=== PATIENT | male | born 1960 | race Caucasian/White ===

== ENCOUNTER 2016-11-05 03:48 | Emergency (ER) | payer BC ==
[~2016-11-05] VITALS: Ht 172.7 cm; Wt 100.0 kg
[~2016-11-05 03:48] MED LIST: ACTOS45 MG PO; ASCORBIC ACID500 M3 PO; AUGMENTIN875 MG PO; CENTRUM SILVER1 EAC3 PO; CYMBALTA60 MG PO; DIOVAN HCT 11 TABLET PO; DIOVAN HCT 1601 EACH PO; Ecotrin PO; FLEXERIL10 MG PO; GLIMEPIRIDE4 MG PO; JANUMET 50/11 TABLET PO; JANUMET 50/51 TABLET PO; JANUVIA100 MG PO; LASIX40 MG PO; LEVEMIR FL100 UNIT/1 SC; LEVEMIR100 UNIT/2 SC; LISINOPRIL-HCT1 EAC3 PO; LOW DOSE ASPIRI81 M1 PO; METFORMIN HCL1000 MG PO; METOPROLOL SUCC50 MG PO; NABUMETONE500 M1 PO; NABUMETONE500 MG PO; NAPROSYN-EC500 MG PO; NAPROSYN500 MG PO; NOVOLOG 10100 UNITS/ SC; NOVOLOG PE100 UNITS/ SC; ROBITUSSIN AC,T10 ML PO; Relafen PO; SIMVASTATIN40 M1 PO; TYLENOL REGULA325 MG PO; Tylenol Regular Stre PO; ZESTORETIC 20-1 EAC2 PO; ZOCOR40 MG PO
[2016-11-05 05:11] LABS: HEMATOCRIT 33.2 % (38.0-50.0); MCH 27.6 PG (29.0-34.0); MCV 81.2 FL (86-99); PLATELET COUNT 261 K/uL (156-360); RBC DIS.WIDTH-CV 12.9 % (11.8-14.6); RBC DIS.WIDTH-SD 37.9 % (39-53); RED BLOOD COUNT 4.09 M/uL (4.00-5.50); WHITE BLOOD COUNT 8.7 K/uL (4.1-10.2)
[2016-11-05 05:33] LABS: ANION GAP 8 MEQ/L (2-14); CHLORIDE 101 MEQ/L (99-109); GFR ESTIMATE (CALCULATED) > 59 mL/min/; GLUCOSE 275 mg/dL (70-99); POTASSIUM 4.4 MEQ/L (3.7-5.4); SAMPLE HEMOLYSIS CHECK 0; SAMPLE ICTERIC CHECK 0; SAMPLE LIPEMIA CHECK 0; SODIUM 135 MEQ/L (136-147); UREA NITROGEN (BUN) 18 mg/dL (9-23)
[2016-11-05] MEDS ORDERED: BACTRIM,SEPT1 TABLET PO (06:10)
[2016-11-05 06:23] VITALS: BP 142/77
[2016-11-05 06:57] LABS: ERTH.SED.RATE 36 MM/HR (0-20)
== END 2016-11-05 06:38 | disposition home or self-care (01) ==
LOC: EME 03:48 → EXP 03:48
PROVIDERS: Emergency Medicine
DX: L03.116 Cellulitis of left lower limb (principal)
CPT/HCPCS: 73610; 80048; 84550; 85027; 85651; 86140; 99281; 99284